=== PATIENT | female | born 1965 | race Two or more races ===

== ENCOUNTER 2016-03-09 21:36 | Emergency (ER) ==
[2016-03-09] MEDS ORDERED: LEVAQUIN PO STA (21:45)
[2016-03-09] MEDS ORDERED: NORCO 7.5-325 PO STA (21:45)
[2016-03-09] MEDS ORDERED: FLOXIN 0.3% OTIC SOL OT STA (21:45)
--- NOTE | 2016-03-09 21:48 | ED.PDOC ---
General ED Provider: Dr. YG PRAKASH-ER Chief Complaint: Earache Stated Complaint: my ear hurts Time Seen by Physician: 21:46 Mode of Arrival: Walk-In Information Source: Patient, Family Nursing and Triage Documentation Reviewed and Agree: Yes EENT Complaint Exam - Ear Complaint/Exam Onset/Duration: 2 days Symptoms Are: Still present Timing: Constant Initial Severity: Mild Current Severity: Moderate Character: Reports: Room spinning, Dull pain, Aching pain Aggravating: Reports: Tugging on ear Alleviating: Reports: None Associated Signs and Symptoms: Reports: Ear swelling, URI symptoms, Pain to external ear. Denies: Ear trauma, Discharge, Fever, Hearing loss, Bleeding, Sore throat, Headache, Foreign body sensation, Rash, Pain to external face Ear Surgical History: None Vesicles to External Pinna: No Vesicles to Tragus: No External Canal: Erythema, Tenderness, Swelling Tympanic Membrane: Erythema, Dullness Differential Diagnoses: Otitis Externa, Otitis Media Review of Systems - Review Of Systems Constitutional: Reports: No symptoms Eyes: Reports: No symptoms Ears, Nose, Mouth, Throat: Reports: Ear pain Respiratory: Reports: No symptoms Cardiac: Reports: No symptoms GI: Reports: No symptoms : Reports: No symptoms Musculoskeletal: Reports: No symptoms Skin: Reports: No symptoms Neurological: Reports: No symptoms Endocrine: Reports: No symptoms Hematologic/Lymphatic: Reports: No symptoms All Other Systems: Reviewed and Negative Past Medical History - Past Medical History Previously Healthy: Yes Endocrine: Reports: Unknown Cardiovascular: Reports: Unknown Respiratory: Reports: Unknown Hematological: Reports: Unknown Gastrointestinal: Reports: Unknown Genitourinary: Reports: Unknown Neuro/Psych: Reports: Unknown Musculoskeletal: Reports: Unknown Cancer: Reports: Unknown - Surgical History General Surgical History: Reports: Unknown - Family History Family History: Reports: Unknown - Social History Smoking Status: Unknown if ever smoked Alcohol Screening: None Lives: With family Physical Exam - Physical Exam Appearance: Well-appearing, No pain distress, Well-nourished Pain Distress: Mild Eyes: ABIDA, EOMI, Conjunctiva clear ENT: Ears normal, Nose normal, Erythema, Exudate (right tm and ext canal) Respiratory: Airway patent Cardiovascular: RRR, Pulses normal, No rub, No murmur GI/: Soft Musculoskeletal: Normal strength, ROM intact, No edema, No calf tenderness Skin: Warm, Dry, Normal color Neurological: Sensation intact Psychiatric: Affect appropriate, Mood appropriate Critical Care Note - Critical Care Note Total Time (mins): 0 Course - Course Orders, Labs, Meds: Orders Category Date Time Status Hydrocodone Bit/Acetaminophen [[place] 7.5-325] MEDS 03/09/16 21:45 Stat 1 tab PO ONCE STA Levofloxacin [Levaquin] MEDS 03/09/16 21:45 Stat 500 mg PO ONCE STA Ofloxacin 0.3% Otic [place] [Floxin 0.3% Otic Chantelle] MEDS 03/09/16 21:45 Stat 10 drop OT ONCE STA Departure - Departure Time of Disposition: 21:48 Disposition: HOME SELF-CARE Discharge Problem: Otitis media Qualifiers: Otitis media type: unspecified Laterality: right Chronicity: unspecified Qualifier Code: (H66.91) Otitis media, unspecified, right ear Otitis externa Qualifiers: Otitis externa type: unspecified type Laterality: right Chronicity: acute Qualifier Code: (H60.501) Unspecified acute noninfective otitis externa, right ear Instructions: Otitis Media (ED) Condition: Good Pt referred to PMD for follow-up: Yes Additional Instructions: levaquin 500mg q daily #7--floxin drops 10 drops into the ear bid x 7days--- norco 5mg q 4hrs prn paiun #10--f/u with pcp Allergies/Adverse Reactions: Allergies Penicillins Allergy (Severe, Unverified 10/06/15 14:00) Rash Pt to notify drugstore. Home Medications: Ambulatory Orders Atenolol 100 mg PO d 10/06/15 Disposition Discussed With: Patient, Family
[2016-03-09 21:49] VITALS: BP 147/82; TEMP 98; BMI 42.2
[2016-03-09] MEDS ORDERED: CORTISPORIN OTIC SUSP OT ONE ×2 (21:59→22:02)
== END 2016-03-09 22:20 | disposition home or self-care (01) ==
LOC: ED 21:36
DX: H66.91 Otitis media, unspecified, right ear (principal); H60.501 Unspecified acute noninfective otitis externa, right ear
CPT/HCPCS: 99282

== ENCOUNTER 2016-03-25 23:29 | Emergency (ER) ==
[2016-03-25 23:38] VITALS: BP 130/84; TEMP 97.9; BMI 42.0
[2016-03-26] MEDS ORDERED: ROCEPHIN IM STA (00:15)
[2016-03-26] MEDS ORDERED: LIDOCAINE 1 % AMP 5 ML (SUTURES) IM STA (00:15)
--- NOTE | 2016-03-26 00:18 | ED.PDOC ---
General ED Provider: Dr. VIRGINIE LINDA Chief Complaint: Earache Stated Complaint: Been hurting in the right ear, was here 10 days ago, the pain got better with antibiotics and it started from 2 days. Time Seen by Physician: 00:18 Mode of Arrival: Walk-In Information Source: Patient, Family Nursing and Triage Documentation Reviewed and Agree: Yes EENT Complaint Exam - Ear Complaint/Exam Symptoms Are: Still present Timing: Constant Initial Severity: Moderate Current Severity: Moderate Aggravating: Reports: None Alleviating: Reports: None Associated Signs and Symptoms: Reports: Discharge, URI symptoms. Denies: Ear trauma, Ear swelling, Fever, Hearing loss, Bleeding, Sore throat, Headache, Foreign body sensation, Rash, Pain to external ear, Pain to external face Related History: Reports: Similar Episode Ear Surgical History: None Vesicles to External Pinna: No TMJ Tenderness: None Mastoid Tenderness: None Tragal Tenderness: None External Canal: Normal Material in Canal: Present: Discharge Differential Diagnoses: Otitis Media, Perforated TM Review of Systems - Review Of Systems Constitutional: Reports: No symptoms Eyes: Reports: No symptoms Ears, Nose, Mouth, Throat: Reports: Ear pain Respiratory: Reports: No symptoms Cardiac: Reports: No symptoms GI: Reports: No symptoms : Reports: No symptoms Musculoskeletal: Reports: No symptoms Skin: Reports: No symptoms Neurological: Reports: No symptoms Endocrine: Reports: No symptoms Hematologic/Lymphatic: Reports: No symptoms All Other Systems: Reviewed and Negative Past Medical History - Past Medical History Previously Healthy: Yes Endocrine: Reports: Unknown Cardiovascular: Reports: Unknown Respiratory: Reports: Unknown Hematological: Reports: Unknown Gastrointestinal: Reports: Unknown Genitourinary: Reports: Unknown Neuro/Psych: Reports: Unknown Musculoskeletal: Reports: Unknown Cancer: Reports: Unknown Last Menstrual Period: 04/01 - Surgical History General Surgical History: Reports: Unknown - Family History Family History: Reports: Unknown - Social History Smoking Status: Unknown if ever smoked Hx Substance Use: No Alcohol Screening: None - Immunizations Tetanus Shot up to Date: Yes Physical Exam - Physical Exam Appearance: Ill-appearing, Obese Eyes: EOMI ENT: TMs Occluded Respiratory: Airway patent, Breath sounds clear, Breath sounds equal, Respirations nonlabored Cardiovascular: RRR, Pulses normal, No rub, No murmur GI/: Soft, Nontender, No masses, Bowel sounds normal, No Organomegaly Musculoskeletal: Normal strength, ROM intact, No edema, No calf tenderness Skin: Warm, Dry, Normal color Neurological: Sensation intact, Motor intact, Reflexes intact, Cranial nerves intact, Alert, Oriented Psychiatric: Affect appropriate, Mood appropriate Critical Care Note - Critical Care Note Total Time (mins): 0 Course - Course Orders, Labs, Meds: Orders Category Date Time Status Ceftriaxone Sodium [Rocephin] MEDS 03/26/16 00:15 Stat 1 gm IM ONCE STA Lidocaine HCl/Pf [Lidocaine 1 % Amp 5 ml (Sutures)] MEDS 03/26/16 00:15 Stat 2.1 ml IM ONCE STA Vital Signs: Temp Pulse Resp BP Pulse Ox 03/25/16 23:31 97.9 F 79 20 130/84 98 Departure - Departure Time of Disposition: 00:26 Disposition: HOME SELF-CARE Discharge Problem: Otitis media Qualifiers: Otitis media type: serous Laterality: right Chronicity: acute Recurrence: recurrent Qualifier Code: (H65.04) Acute serous otitis media, recurrent, right ear Instructions: Otitis Media (ED) Condition: Stable Pt referred to PMD for follow-up: Yes Additional Instructions: [facility] suzanne, used to communicate with patient. she is not allergic to PCN, patient is in the room with her, discussed that infection can spread to brain, needs f./u with ENT Prescriptions: Amoxicillin/Potassium Clav [Augmentin 500-125 mg Tab] 1 tab PO Q8HR #30 tablet Allergies/Adverse Reactions: Allergies Penicillins Allergy (Severe, Verified 03/09/16 21:49) Rash Pt to notify drugstore. Home Medications: Ambulatory Orders Atenolol 100 mg PO d 10/06/15 Hydrocodone Bit/Acetaminophen [[place] 5-325] 1 mg PO PRN PRN 03/25/16 Levofloxacin [Levaquin] 500 mg PO DAILY 03/25/16 Neomycin/Polymyxin B Sulf/Hc [Lpbphyrx-Efmuzciex-Sj Ear Susp] 1 ml EACH EAR BID 03/25/16 Amoxicillin/Potassium Clav [Augmentin 500-125 mg Tab] 1 tab PO Q8HR #30 tablet 03/26/16 Disposition Discussed With: Patient, Family
== END 2016-03-26 01:32 | disposition home or self-care (01) ==
LOC: ED 23:29
DX: H65.04 Acute serous otitis media, recurrent, right ear (principal)
CPT/HCPCS: 96372; 99282; 99283

== ENCOUNTER 2016-06-14 17:23 | Outpatient (CLI) ==
[2016-06-14 17:47] LABS: ALBUMIN 3.7 g/dL (3.4-5.0); ALBUMIN/GLOBULIN RATIO 0.88; ANION GAP 12.6; BILIRUBIN,TOTAL 0.26 mg/dL (0.00-1.20); BUN/CREATININE RATIO 17.14; CALCIUM 9.5 mg/dL (8.2-10.2); CREATININE 0.7 mg/dL (0.60-1.30); POTASSIUM 3.6 mmol/L (3.5-5.10); TOTAL PROTEIN 7.9 g/dL (6.4-8.2)
[2016-06-14 19:07] LABS: BASOPHILS % (AUTO) 0.4 % (0.0-3.0); EOSINOPHILS # (AUTO) 0.2 K/ul (0.0-0.7); EOSINOPHILS % (AUTO) 1.8 % (0.0-7.0); HEMATOCRIT 39.2 % (37.0-47.0); HEMOGLOBIN 13.2 g/dl (12.0-16.0); IMMATURE GRANULOCYTE % (AUTO) 0.3 % (0.0-5.0); LYMPHOCYTES # (AUTO) 3.6 K/uL (0.60-3.4); LYMPHOCYTES % (AUTO) 38.4 (10.0-50.0); MEAN CORPUSCULAR HEMOGLOBIN 28.6 pg (27.0-31.0); MEAN CORPUSCULAR HGB CONC 33.7 (31.8-35.4); MEAN CORPUSCULAR VOLUME 84.8 fl (81.0-99.0); MONOCYTES # (AUTO) 0.7 K/uL (0.4-2.0); MONOCYTES % (AUTO) 7.5 (0-10); NEUTROPHILS # (AUTO) 4.8 K/ul (2.0-6.9); NEUTROPHILS % (AUTO) 51.6; PLATELET COUNT 265 10^3/uL (140-440); RED BLOOD COUNT 4.62 10^6/ul (4.20-5.40)
== END 2016-06-14 17:24 | disposition home or self-care (01) ==
LOC: LAB 17:23
PROVIDERS: ATTEND Nurse Practitioner Family
DX: R19.7 Diarrhea, unspecified (principal)
CPT/HCPCS: 36415; 80053; 82150; 83690; 85025

== ENCOUNTER 2016-06-17 07:11 | Outpatient (CLI) ==
--- NOTE | 2016-06-17 08:22 | US ---
EXAM: ULTRASOUND ABDOMEN LIMITED HISTORY: Generalized abdominal pain FINDINGS: Ultrasound abdomen, limited. Liver size was normal at about 13 cm. Liver parenchyma demo nstrated increased sound attenuation which can be consistent with steatosis. No gallbladder stones or sludge identified. The gallbladder wall thickness was normal at 0.21 cm. Common bile duct diame ter was minimally dilated at 0.67 cm. Visualized pancreas was grossly unremarkable. No ascites molly ntified. IMPRESSION: 1. Probable fatty liver. 2. No gallstones or gallbladder sludge identified. The gallbladder wall thickness was normal altho ugh the common bile duct was minimally dilated.
== END 2016-06-17 07:12 | disposition home or self-care (01) ==
LOC: RAD 07:11
PROVIDERS: ATTEND Nurse Practitioner Family
DX: R10.84 Generalized abdominal pain (principal); R94.5 Abnormal results of liver function studies

== ENCOUNTER 2016-06-22 08:36 | Outpatient (CLI) ==
--- NOTE | 2016-06-22 12:28 | NM ---
EXAM: Hepatobiliary imaging HISTORY: Abdominal pain COMPARISON: Limited abdominal ultrasound on 06/17/2016 showed fatty liver. No gallstones. TECHNIQUE: Patient was injected 5.1 mCi of technetium 99m Choletec intravenously. Multiple anterior scintigraphic images of the right upper quadrant region of the abdomen were obtained up to 1 hour i nterval. Patient was infused 2 mcg of cholecystokinin intravenously. Gallbladder ejection fraction was calculated. FINDINGS: There is normal visualization of liver, gallbladder, bile duct and small bowel loops. Gal lbladder ejection fraction is 12% which is abnormal. IMPRESSION: Findings are compatible with chronic acalculous cholecystitis or biliary dyskinesia.
== END 2016-06-22 08:37 | disposition home or self-care (01) ==
LOC: RAD 08:36
PROVIDERS: ATTEND Nurse Practitioner Family
DX: R10.84 Generalized abdominal pain (principal); R94.5 Abnormal results of liver function studies

== ENCOUNTER 2016-07-13 04:00 | Emergency (ER) ==
[2016-07-13 04:01] VITALS: BMI 42.0
[2016-07-13 04:12] VITALS: BP 147/84; TEMP 98
[2016-07-13 04:35] LABS: BASOPHILS # (AUTO) 0.1 K/uL (0-0.2); BASOPHILS % (AUTO) 0.5 % (0.0-3.0); EOSINOPHILS # (AUTO) 0.3 K/ul (0.0-0.7); EOSINOPHILS % (AUTO) 2.4 % (0.0-7.0); HEMATOCRIT 36.4 % (37.0-47.0); HEMOGLOBIN 12.6 g/dl (12.0-16.0); IMMATURE GRANULOCYTE % (AUTO) 0.2 % (0.0-5.0); LYMPHOCYTES # (AUTO) 4.7 K/uL (0.60-3.4); LYMPHOCYTES % (AUTO) 41.9 (10.0-50.0); MEAN CORPUSCULAR HEMOGLOBIN 28.8 pg (27.0-31.0); MEAN CORPUSCULAR HGB CONC 34.6 (31.8-35.4); MEAN CORPUSCULAR VOLUME 83.3 fl (81.0-99.0); MONOCYTES # (AUTO) 0.8 K/uL (0.4-2.0); MONOCYTES % (AUTO) 7.2 (0-10); NEUTROPHILS # (AUTO) 5.4 K/ul (2.0-6.9); NEUTROPHILS % (AUTO) 47.8; PLATELET COUNT 263 10^3/uL (140-440); RED BLOOD COUNT 4.37 10^6/ul (4.20-5.40); WHITE BLOOD COUNT 11.18 K/ul (4.6-10.2)
[2016-07-13 04:36] LABS: BILIRUBIN,URINE Negative (NEGATIVE); KETONES,URINE Negative (NEGATIVE); LEUKOCYTE ESTERASE ,URINE Trace (NEGATIVE); NITRITE,URINE Negative (NEGATIVE); PROTEIN,URINE Negative (NEGATIVE); URINE, BLOOD Negative (NEGATIVE)
[2016-07-13 04:37] LABS: URINE PREGNANCY INTERNAL QC INTERNAL QC VALID
[2016-07-13 04:41] LABS: ADD URINE MICROSCOPIC YES
[2016-07-13 04:42] LABS: BACTERIA,URINE TRACE (NOT PRESENT)
[2016-07-13 04:54] LABS: ALBUMIN 3.6 g/dL (3.4-5.0); ALBUMIN/GLOBULIN RATIO 0.82; ANION GAP 10.5; BILIRUBIN,TOTAL 0.38 mg/dL (0.00-1.20); BUN/CREATININE RATIO 16.9; CALCIUM 9.1 mg/dL (8.2-10.2); CREATININE 0.71 mg/dL (0.60-1.30); POTASSIUM 3.5 mmol/L (3.5-5.10)
[2016-07-13] MEDS ORDERED: DEMEROL 50 MG/ML SYRINGE IM STA (05:04)
[2016-07-13] MEDS ORDERED: PHENERGAN 25 MG/ML VIAL IM STA (05:04)
--- NOTE | 2016-07-13 05:44 | CT ---
EXAM: CT of the abdomen and pelvis without contrast. HISTORY: Right upper quadrant pain. PROCEDURE: Contiguous axial CT images of the abdomen and pelvis without contrast with coronal and s agittal reformats. FINDINGS: The liver, gallbladder, pancreas, spleen, adrenal glands and kidneys are normal in appeara nce. The abdominal aorta is normal in appearance. The visualized loops of bowel and appendix are no rmal in appearance. No free fluid or free air in the abdomen or pelvis. The bladder is adequately f illed with no abnormality identified. The uterus is unremarkable. There are degenerative changes in the spine. The soft tissues are unremarkable. Impression: Negative CT of the abdomen and pelvis as described.
--- NOTE | 2016-07-13 05:50 | ED.PDOC ---
General ED Provider: Dr. YG PRAKASH-ER Chief Complaint: Abdominal Pain Stated Complaint: she is scheculked to have her gb out soon--i am having pain and nausea Time Seen by Physician: 04:30 Mode of Arrival: Walk-In Information Source: Patient, Family Exam Limitations: No limitations [facility] and Triage Documentation Reviewed and Agree: Yes GI Complaint Exam - Abdominal Pain Complaint/Exam Onset: Gradual Duration: several hours Symptoms Are: Still present Timing: Intermittent Initial Severity: Mild Current Severity: Moderate Location of Pain: RUQ Radiates To: Reports: Back Character: Reports: Dull Aggravating: Reports: None Alleviating: Reports: None Associated Signs and Symptoms: Reports: Nausea, Vomiting. Denies: Diaphoresis, Fever, Cough, Chest pain, Dizziness, Back pain, Constipation, Blood in stool, Dysuria, Urinary frequency, Decreased urine output, Decreased appetite, Vaginal bleeding, Vaginal discharge, Diarrhea, Sore throat, Decreased activity Related History: Reports: Similar episode AAA Risk Factors: Reports: None Cardiac Risk Factors: Reports: None Ectopic Risk Factors: Reports: None Ovarian Torsion Risk Factors: Reports: Reproductive age Surgical Obstruction Risk Factors: Reports: None Related Surgical History: Reports: None Patient Rh Status: Unknown Abdominal Findings: Present: None Differential Diagnoses: Constipation, GB Review of Systems - Review Of Systems Constitutional: Reports: No symptoms Eyes: Reports: No symptoms Ears, Nose, Mouth, Throat: Reports: No symptoms Respiratory: Reports: No symptoms Cardiac: Reports: No symptoms GI: Reports: Abdominal pain, Nausea : Reports: No symptoms Musculoskeletal: Reports: No symptoms Skin: Reports: No symptoms Neurological: Reports: No symptoms Endocrine: Reports: No symptoms Hematologic/Lymphatic: Reports: No symptoms All Other Systems: Reviewed and Negative Past Medical History - Past Medical History Previously Healthy: Yes Endocrine: Reports: Unknown Cardiovascular: Reports: Unknown Respiratory: Reports: Unknown Hematological: Reports: Unknown Gastrointestinal: Reports: Unknown Genitourinary: Reports: Unknown Neuro/Psych: Reports: Unknown Musculoskeletal: Reports: Unknown Cancer: Reports: Unknown Last Menstrual Period: 517 - Surgical History General Surgical History: Reports: Unknown - Family History Family History: Reports: Unknown - Social History Smoking Status: Never smoker Hx Substance Use: No Alcohol Screening: None Lives: With family - Immunizations Tetanus Shot up to Date: Yes Physical Exam - Physical Exam Appearance: Well-appearing Pain Distress: Moderate Eyes: ABIDA, EOMI, Conjunctiva clear ENT: Ears normal, Nose normal, Oropharynx normal Neck: Supple Respiratory: Airway patent, Breath sounds clear, Breath sounds equal, Respirations nonlabored Cardiovascular: RRR, Pulses normal, No rub, No murmur GI/: Soft, No masses, Bowel sounds normal, No Organomegaly, Tender Musculoskeletal: Normal strength, ROM intact, No edema, No calf tenderness Skin: Warm, Dry, Normal color Neurological: Sensation intact, Motor intact, Reflexes intact, Cranial nerves intact, Alert, Oriented Psychiatric: Affect appropriate, Mood appropriate Interpretation - Radiology Interpretation Radiology Interpretation By: Radiologist Radiology Results: Negative Exam Interpreted: CT Scan Re-Evaluation - Re-Evaluation Time of Re-Evaluation: 05:50 Status: Improved Vital Signs Stable: Yes Pain Level: 2 Appearance: NAD Lungs: Clear Skin: Warm and Dry Neuro: Alert and Oriented X3 CV: RRR Critical Care Note - Critical Care Note Total Time (mins): 0 Course - Course Hematology/Chemistry: 07/13/16 04:30 07/13/16 04:30 Orders, Labs, Meds: Lab Review 07/13/16 07/13/16 04:25 04:30 WBC 11.18 H RBC 4.37 Hgb 12.6 Hct 36.4 L MCV 83.3 MCH 28.8 MCHC 34.6 RDW Coeff of Ted 14.2 Plt Count 263 Immature Gran % (Auto) 0.2 Neut % (Auto) 47.8 Lymph % (Auto) 41.9 [place] % (Auto) 7.2 Eos % (Auto) 2.4 Baso % (Auto) 0.5 Immature Gran # (Auto) 0.0 Neut # 5.4 Lymph # 4.7 H [place] # 0.8 Eos # 0.3 Baso # 0.1 Sodium 135 L Potassium 3.5 Chloride 105 Carbon Dioxide 23 Anion Gap 10.5 BUN 12 Creatinine 0.71 Estimated GFR (MDRD) 88.00 BUN/Creatinine Ratio 16.90 Glucose 102 Calcium 9.1 Total Bilirubin 0.38 AST 43 H ALT 51 Alkaline Phosphatase 83 Total Protein 8.0 Albumin 3.6 Globulin 4.4 Albumin/Globulin Ratio 0.82 Amylase 51 Lipase 26 Urine Color Yellow Urine Clarity Clear Urine pH 6.0 Ur Specific [place] 1.010 Urine Protein Negative Urine Glucose (UA) Negative Urine Ketones Negative Urine Blood Negative Urine Nitrite Negative Urine Bilirubin Negative Urine Urobilinogen 0.2 Ur Leukocyte Esterase Trace Urine Microscopic WBC 2-5 Ur Squamous Epith Cells 5-10 Urine Bacteria Trace Urine Test Negative Orders Category Date Time Status AMYLASE Stat LAB 07/13/16 04:30 Completed CBC W/ AUTO DIFF Stat LAB 07/13/16 04:30 Completed CMP [COMPREHENSIVE METABOLIC PANEL] Stat LAB 07/13/16 04:30 Completed LIPASE Stat LAB 07/13/16 04:30 Completed URINALYSIS C & S IF INDICATED Stat LAB 07/13/16 04:25 Completed URINE Stat LAB 07/13/16 04:25 Completed Meperidine HCl/Pf [Demerol 50 mg/ml Syringe] MEDS 07/13/16 05:04 Discontinued 50 mg IM ONCE STA Promethazine HCl [Phenergan 25 mg/ml Vial] MEDS 07/13/16 05:04 Discontinued 25 mg IM ONCE STA CT ABDOMEN/PELVIS WO CONTRAST Stat RADS 07/13/16 05:04 Completed Medications Discontinued Medications Generic Name Dose Route Start Last Admin Trade Name Joelle PRN Reason Stop Dose Admin Meperidine HCl 50 mg 07/13/16 05:04 07/13/16 05:13 Demerol 50 Mg/Ml Syringe IM 07/13/16 05:05 50 mg ONCE STA Administration Promethazine HCl 25 mg 07/13/16 05:04 07/13/16 05:12 Phenergan 25 Mg/Ml Vial IM 07/13/16 05:05 25 mg ONCE STA Administration Vital Signs: Temp Pulse Resp BP Pulse Ox 07/13/16 04:01 98 F 71 18 147/84 H 99 Departure - Departure Time of Disposition: 05:50 Disposition: HOME SELF-CARE Discharge Problem: Abdominal pain Instructions: Biliary Colic (ED) Condition: Good Pt referred to PMD for follow-up: Yes Additional Instructions: low fat diet--f/u with dr bocanegra Allergies/Adverse Reactions: Allergies Penicillins Allergy (Severe, Verified 07/13/16 04:12) Rash Pt to notify drugstore. Disposition Discussed With: Patient, Family
== END 2016-07-13 05:58 | disposition home or self-care (01) ==
LOC: ED 04:00
DX: R10.11 Right upper quadrant pain (principal); R11.2 Nausea with vomiting, unspecified
CPT/HCPCS: 36415; 80053; 81001; 81025; 82150; 83690; 85025; 96372; 99283

== ENCOUNTER 2016-08-01 22:21 | Emergency (ER) ==
[2016-08-01 22:28] VITALS: BP 126/81; TEMP 98.7; BMI 41.7
[2016-08-01] MEDS ORDERED: ZOFRAN 4 MG/2 ML IM STA (22:41)
[2016-08-01] MEDS ORDERED: DEMEROL 25 MG/ML SYRINGE IM STA (22:41)
--- NOTE | 2016-08-01 22:44 | ED.PDOC ---
General ED Provider: Dr. VIRGINIE LINDA Chief Complaint: Abdominal Pain Stated Complaint: Been hurting in the rt side of the belly, she suppose to have Gb SURGERY ON 07-15-16, But was re scheduled to some other time,. no vomiting, no fever or chills Time Seen by Physician: 22:42 Mode of Arrival: Walk-In Information Source: Patient, Family Primary Care Provider: VIRGINIE LINDA[facility] Nursing and Triage Documentation Reviewed and Agree: Yes GI Complaint Exam - Abdominal Pain Complaint/Exam Onset: Gradual Symptoms Are: Still present Timing: Intermittent Initial Severity: Moderate Current Severity: Moderate Location of Pain: RUQ Radiates To: Reports: Back Character: Reports: Dull, Aching Aggravating: Reports: Movement, Food Alleviating: Reports: None Associated Signs and Symptoms: Denies: Diaphoresis, Fever, Cough, Chest pain, Dizziness, Back pain, Constipation, Blood in stool, Dysuria, Urinary frequency, Decreased urine output, Decreased appetite, Vaginal bleeding, Vaginal discharge , Nausea, Vomiting, Diarrhea, Sore throat, Decreased activity Related History: Reports: Similar episode AAA Risk Factors: Reports: None Cardiac Risk Factors: Reports: None Ectopic Risk Factors: Reports: None Ovarian Torsion Risk Factors: Reports: None Surgical Obstruction Risk Factors: Reports: None Related Surgical History: Reports: None Patient Rh Status: Unknown Abdominal Findings: Absent: Pulsatile mass, Abdominal distention, Unequal femoral pulses, Rebound tenderness Differential Diagnoses: Hepatitis, Pancreatitis, GB Review of Systems - Review Of Systems Constitutional: Reports: Malaise Eyes: Reports: No symptoms Ears, Nose, Mouth, Throat: Reports: No symptoms Respiratory: Reports: No symptoms Cardiac: Reports: No symptoms GI: Reports: Abdominal pain : Reports: No symptoms Musculoskeletal: Reports: No symptoms Skin: Reports: No symptoms Neurological: Reports: No symptoms Endocrine: Reports: No symptoms Hematologic/Lymphatic: Reports: No symptoms All Other Systems: Reviewed and Negative Past Medical History - Past Medical History Previously Healthy: Yes Endocrine: Reports: Unknown Cardiovascular: Reports: Unknown Respiratory: Reports: Unknown Hematological: Reports: Unknown Gastrointestinal: Reports: Unknown Genitourinary: Reports: Unknown Neuro/Psych: Reports: Unknown Musculoskeletal: Reports: Unknown Cancer: Reports: Unknown Last Menstrual Period: 07/26/16 - Surgical History General Surgical History: Reports: Unknown - Family History Family History: Reports: Unknown - Social History Smoking Status: Never smoker Hx Substance Use: No Alcohol Screening: None - Immunizations Tetanus Shot up to Date: Yes Physical Exam - Physical Exam Appearance: Ill-appearing, Obese Eyes: ABIDA, EOMI, Conjunctiva clear ENT: Ears normal, Nose normal, Oropharynx normal Respiratory: Airway patent, Breath sounds clear, Breath sounds equal, Respirations nonlabored Cardiovascular: RRR, Pulses normal, No rub, No murmur GI/: Tender, Bowel sounds hypoactive Musculoskeletal: Normal strength, ROM intact, No edema, No calf tenderness Skin: Warm, Dry, Normal color Neurological: Sensation intact, Motor intact, Reflexes intact, Cranial nerves intact, Alert, Oriented Psychiatric: Affect appropriate, Mood appropriate Interpretation - Radiology Interpretation Radiology Interpretation By: Radiologist Radiology Results: Negative Exam Interpreted: CT Scan Critical Care Note - Critical Care Note Total Time (mins): 0 Course - Course Hematology/Chemistry: 08/01/16 22:45 08/01/16 22:45 Orders, Labs, Meds: Lab Review 08/01/16 22:45 WBC 10.57 H RBC 4.38 Hgb 12.5 Hct 36.8 L MCV 84.0 MCH 28.5 MCHC 34.0 RDW Coeff of Ted 14.6 Plt Count 256 Immature Gran % (Auto) 0.3 Neut % (Auto) 52.6 Lymph % (Auto) 37.4 [place] % (Auto) 6.9 Eos % (Auto) 2.3 Baso % (Auto) 0.5 Immature Gran # (Auto) 0.0 Neut # 5.6 Lymph # 4.0 H [place] # 0.7 Eos # 0.2 Baso # 0.1 Sodium 140 Potassium 4.0 Chloride 107 Carbon Dioxide 24 Anion Gap 13.0 BUN 14 Creatinine 0.75 Estimated GFR (MDRD) 82.00 BUN/Creatinine Ratio 18.66 Glucose 99 Calcium 9.6 Total Bilirubin 0.29 AST 31 ALT 38 Alkaline Phosphatase 85 Total Protein 8.2 Albumin 3.9 Globulin 4.3 Albumin/Globulin Ratio 0.91 Amylase 52 Lipase 31 Serum , Qual Negative Orders Category Date Time Status AMYLASE Stat LAB 08/01/16 22:45 Completed CBC W/ AUTO DIFF Stat LAB 08/01/16 22:45 Completed COMPREHENSIVE METABOLIC PANEL Stat LAB 08/01/16 22:45 Completed LIPASE Stat LAB 08/01/16 22:45 Completed SERUM Stat LAB 08/01/16 22:45 Completed Meperidine HCl/Pf [Demerol 25 mg/ml Syringe] MEDS 08/01/16 22:41 Discontinued 25 mg IM ONCE STA Ondansetron HCl/Pf [Zofran 4 mg/2 ml] MEDS 08/01/16 22:41 Discontinued 4 mg IM ONCE STA CT ABDOMEN/PELVIS WO CONTRAST Stat RADS 08/01/16 22:41 Completed Medications Discontinued Medications Generic Name Dose Route Start Last Admin Trade Name Joelle PRN Reason Stop Dose Admin Meperidine HCl 25 mg 08/01/16 22:41 08/01/16 22:50 Demerol 25 Mg/Ml Syringe IM 08/01/16 22:42 25 mg ONCE STA Administration Ondansetron HCl 4 mg 08/01/16 22:41 08/01/16 22:52 Zofran 4 Mg/2 Ml IM 08/01/16 22:42 4 mg ONCE STA Administration Vital Signs: Temp Pulse Resp BP Pulse Ox 08/01/16 22:22 98.7 F 65 20 126/81 98 Departure - Departure Time of Disposition: 00:00 Disposition: HOME SELF-CARE Discharge Problem: Cholelithiasis Qualifiers: Cholelithiasis location: gallbladder Cholecystitis presence: without cholecystitis Biliary obstruction: without biliary obstruction Qualifier Code: ( K80.20) Calculus of gallbladder without cholecystitis without obstruction Instructions: Gallstones (ED), Biliary Colic (ED) Condition: Stable Pt referred to PMD for follow-up: Yes Additional Instructions: soft diet needs f/u with surgeon Dr Castañeda. Allergies/Adverse Reactions: Allergies No Known Allergies Allergy (Verified 08/01/16 22:28) Home Medications: Ambulatory Orders Amitrip HCl/Chlordiazepoxide [Chlordiazepo-Amitriptyl 5-12.5] 5 - 12.5 mg PO QID PRN 08/01/16 Disposition Discussed With: Patient, Family
[2016-08-01 22:50] LABS: BASOPHILS # (AUTO) 0.1 K/uL (0-0.2); BASOPHILS % (AUTO) 0.5 % (0.0-3.0); EOSINOPHILS # (AUTO) 0.2 K/ul (0.0-0.7); EOSINOPHILS % (AUTO) 2.3 % (0.0-7.0); HEMATOCRIT 36.8 % (37.0-47.0); HEMOGLOBIN 12.5 g/dl (12.0-16.0); IMMATURE GRANULOCYTE % (AUTO) 0.3 % (0.0-5.0); LYMPHOCYTES % (AUTO) 37.4 (10.0-50.0); MEAN CORPUSCULAR HEMOGLOBIN 28.5 pg (27.0-31.0); MONOCYTES # (AUTO) 0.7 K/uL (0.4-2.0); MONOCYTES % (AUTO) 6.9 (0-10); NEUTROPHILS # (AUTO) 5.6 K/ul (2.0-6.9); NEUTROPHILS % (AUTO) 52.6; PLATELET COUNT 256 10^3/uL (140-440); RED BLOOD COUNT 4.38 10^6/ul (4.20-5.40); WHITE BLOOD COUNT 10.57 K/ul (4.6-10.2)
[2016-08-01 23:06] LABS: SERUM PREGNANCY INTERNAL QC INTERNAL QC VALID
[2016-08-01 23:10] LABS: ALBUMIN 3.9 g/dL (3.4-5.0); ALBUMIN/GLOBULIN RATIO 0.91; BILIRUBIN,TOTAL 0.29 mg/dL (0.00-1.20); BUN/CREATININE RATIO 18.66; CALCIUM 9.6 mg/dL (8.2-10.2); CREATININE 0.75 mg/dL (0.60-1.30); TOTAL PROTEIN 8.2 g/dL (6.4-8.2)
--- NOTE | 2016-08-01 23:43 | CT ---
EXAM: CT of the abdomen and pelvis without contrast. HISTORY: Right upper quadrant pain. PROCEDURE: Contiguous axial CT images of the abdomen and pelvis without contrast with coronal and s agittal reformats. FINDINGS: The liver, gallbladder, pancreas, spleen, adrenal glands and kidneys are normal in appeara nce. The abdominal aorta is normal in appearance. The visualized loops of bowel and appendix are no rmal in appearance. No free fluid or free air in the abdomen or pelvis. The bladder is adequately f illed with no abnormality identified. The uterus is unremarkable. The bones and soft tissues are unr emarkable. Impression: Negative CT of the abdomen and pelvis.
== END 2016-08-02 00:30 | disposition home or self-care (01) ==
LOC: ED 22:21
DX: K80.20 Calculus of gallbladder without cholecystitis without obstruction (principal)
CPT/HCPCS: 36415; 80053; 82150; 83690; 84703; 85025; 96372; 99283

== ENCOUNTER 2016-10-14 10:26 | Outpatient (CLI) ==
[2016-10-14 10:44] LABS: BASOPHILS # (AUTO) 0.1 K/uL (0-0.2); BASOPHILS % (AUTO) 0.6 % (0.0-3.0); EOSINOPHILS # (AUTO) 0.2 K/ul (0.0-0.7); EOSINOPHILS % (AUTO) 2.1 % (0.0-7.0); HEMATOCRIT 38.9 % (37.0-47.0); HEMOGLOBIN 13.2 g/dl (12.0-16.0); IMMATURE GRANULOCYTE % (AUTO) 0.2 % (0.0-5.0); LYMPHOCYTES # (AUTO) 3.5 K/uL (0.60-3.4); LYMPHOCYTES % (AUTO) 33.5 (10.0-50.0); MEAN CORPUSCULAR HEMOGLOBIN 27.4 pg (27.0-31.0); MEAN CORPUSCULAR HGB CONC 33.9 (31.8-35.4); MEAN CORPUSCULAR VOLUME 80.9 fl (81.0-99.0); MONOCYTES # (AUTO) 0.6 K/uL (0.4-2.0); MONOCYTES % (AUTO) 5.5 (0-10); NEUTROPHILS % (AUTO) 58.1; PLATELET COUNT 260 10^3/uL (140-440); RED BLOOD COUNT 4.81 10^6/ul (4.20-5.40); WHITE BLOOD COUNT 10.31 K/ul (4.6-10.2)
[2016-10-14 11:01] LABS: ALBUMIN 3.8 g/dL (3.4-5.0); ALBUMIN/GLOBULIN RATIO 0.86; ANION GAP 14.3; BILIRUBIN,TOTAL 0.36 mg/dL (0.00-1.20); BUN/CREATININE RATIO 10.14; CALCIUM 9.6 mg/dL (8.2-10.2); CREATININE 0.69 mg/dL (0.60-1.30); POTASSIUM 4.3 mmol/L (3.5-5.10); TOTAL PROTEIN 8.2 g/dL (6.4-8.2)
--- NOTE | 2016-10-14 12:17 | CT ---
EXAM: CT Abdomen with contrast. CT Pelvis with contrast. HISTORY: Generalized abdominal pain. COMPARISON: 08/01/2016. TECHNIQUE: Multiple axial images of the abdomen and pelvis were obtained following intravenous admi nistration of 75 mL of Omnipaque 350, low osmolar. Images were reformatted in the coronal plane. FINDINGS: The lung bases are clear. Degenerative changes present in the spine. Gallbladder is absent. The liver, pancreas, spleen, adrenal glands, and kidneys are unremarkable. The bowel is normal in course and caliber without evidence for obstruction or inflammatory process. The appendix is normal. Uterus demonstrates normal contour. Urinary bladder is unremarkable. No free fluid, free air or lymphadenopathy identified midline anterior subcutaneous fat. Soft tissue d ensity above the umbilicus, all less likely relates to interval cholecystectomy. IMPRESSION: No acute abnormality in the abdomen or pelvis.
== END 2016-10-14 10:27 | disposition home or self-care (01) ==
LOC: RAD 10:26
PROVIDERS: ATTEND Nurse Practitioner Family
DX: R10.84 Generalized abdominal pain (principal)
CPT/HCPCS: 36415; 80053; 82150; 83690; 85025

== ENCOUNTER 2016-10-27 13:48 | Outpatient (CLI) ==
[2016-10-27 14:03] LABS: BASOPHILS # (AUTO) 0.1 K/uL (0-0.2); BASOPHILS % (AUTO) 0.6 % (0.0-3.0); EOSINOPHILS # (AUTO) 0.2 K/ul (0.0-0.7); EOSINOPHILS % (AUTO) 1.8 % (0.0-7.0); HEMATOCRIT 38.2 % (37.0-47.0); HEMOGLOBIN 13.1 g/dl (12.0-16.0); IMMATURE GRANULOCYTE % (AUTO) 0.3 % (0.0-5.0); LYMPHOCYTES # (AUTO) 3.5 K/uL (0.60-3.4); MEAN CORPUSCULAR HEMOGLOBIN 27.8 pg (27.0-31.0); MEAN CORPUSCULAR HGB CONC 34.3 (31.8-35.4); MEAN CORPUSCULAR VOLUME 80.9 fl (81.0-99.0); MONOCYTES # (AUTO) 0.6 K/uL (0.4-2.0); MONOCYTES % (AUTO) 5.7 (0-10); NEUTROPHILS # (AUTO) 6.4 K/ul (2.0-6.9); NEUTROPHILS % (AUTO) 59.6; PLATELET COUNT 254 10^3/uL (140-440); RED BLOOD COUNT 4.72 10^6/ul (4.20-5.40)
[2016-10-27 15:16] LABS: ALBUMIN 3.5 g/dL (3.4-5.0); ALBUMIN/GLOBULIN RATIO 0.76; BILIRUBIN,TOTAL 0.27 mg/dL (0.00-1.20); BUN/CREATININE RATIO 13.51; CALCIUM 9.8 mg/dL (8.2-10.2); CHOL/HDL RATIO 3.9 (4.5-5.5); CREATININE 0.74 mg/dL (0.60-1.30); TOTAL PROTEIN 8.1 g/dL (6.4-8.2)
[2016-10-28 07:18] LABS: FOLLICLE STIMULATING HORMONE 2.8 mIU/mL (.); LUTEINIZING HORMONE 8.3 mIU/mL (.)
== END 2016-10-27 13:49 | disposition home or self-care (01) ==
LOC: CAR 13:48
PROVIDERS: ATTEND Nurse Practitioner Family
DX: I10 Essential (primary) hypertension (principal); N91.2 Amenorrhea, unspecified
CPT/HCPCS: 36415; 80053; 80061; 82672; 83001; 83002; 84439; 84443; 85025; 93005; 93010

== ENCOUNTER 2017-02-01 12:37 | Outpatient (CLI) ==
[2017-02-01 13:14] LABS: BASOPHILS # (AUTO) 0.1 K/uL (0-0.2); BASOPHILS % (AUTO) 0.5 % (0.0-3.0); EOSINOPHILS # (AUTO) 0.2 K/ul (0.0-0.7); EOSINOPHILS % (AUTO) 1.7 % (0.0-7.0); HEMATOCRIT 40.1 % (37.0-47.0); HEMOGLOBIN 13.2 g/dl (12.0-16.0); IMMATURE GRANULOCYTE % (AUTO) 0.3 % (0.0-5.0); LYMPHOCYTES # (AUTO) 3.4 K/uL (0.60-3.4); LYMPHOCYTES % (AUTO) 33.8 (10.0-50.0); MEAN CORPUSCULAR HEMOGLOBIN 27.6 pg (27.0-31.0); MEAN CORPUSCULAR HGB CONC 32.9 (31.8-35.4); MEAN CORPUSCULAR VOLUME 83.7 fl (81.0-99.0); MONOCYTES # (AUTO) 0.7 K/uL (0.4-2.0); MONOCYTES % (AUTO) 7.4 (0-10); NEUTROPHILS # (AUTO) 5.6 K/ul (2.0-6.9); NEUTROPHILS % (AUTO) 56.3; PLATELET COUNT 243 10^3/uL (140-440); RED BLOOD COUNT 4.79 10^6/ul (4.20-5.40); WHITE BLOOD COUNT 9.92 K/ul (4.6-10.2)
[2017-02-01 14:12] LABS: ALBUMIN 3.7 g/dL (3.4-5.0); ALBUMIN/GLOBULIN RATIO 0.8; BILIRUBIN,TOTAL 0.3 mg/dL (0.00-1.20); BUN/CREATININE RATIO 16.41; CALCIUM 9.5 mg/dL (8.2-10.2); CHOL/HDL RATIO 3.7 (4.5-5.5); CREATININE 0.67 mg/dL (0.60-1.30); TOTAL PROTEIN 8.3 g/dL (6.4-8.2)
[2017-02-01 14:18] LABS: ANION GAP 13.9; POTASSIUM 3.9 mmol/L (3.5-5.10)
== END 2017-02-01 12:38 | disposition home or self-care (01) ==
LOC: LAB 12:37
PROVIDERS: ATTEND Nurse Practitioner Family
DX: E75.6 Lipid storage disorder, unspecified (principal); I10 Essential (primary) hypertension; R53.83 Other fatigue
CPT/HCPCS: 36415; 80053; 80061; 82306; 84439; 84443; 85025

== ENCOUNTER 2017-02-11 08:35 | Emergency (ER) ==
[2017-02-11 08:41] VITALS: BP 142/91; TEMP 98.4; BMI 41.0
[2017-02-11] MEDS ORDERED: LIDOCAINE HCL 1% SDV SUBCUT STA (09:05)
[2017-02-11] MEDS ORDERED: ROCEPHIN IM STA (09:05)
[2017-02-11] MEDS ORDERED: DECADRON 4 MG/ML SDV IM STA (09:05)
[2017-02-11] MEDS ORDERED: TUSSIONEX PO STA (09:06)
--- NOTE | 2017-02-11 09:12 | ED.PDOC ---
General ED Provider: Dr. EMILE MARQUIS Chief Complaint: Respiratory Complaint Stated Complaint: cough flu like symp Time Seen by Physician: 09:00 Mode of Arrival: Walk-In Information Source: Patient, Family Exam Limitations: No limitations [facility] Nursing and Triage Documentation Reviewed and Agree: Yes Reviewed sepsis parameters & appropriate labs ordered?: Yes System Inflammatory Response Syndrome: Not Applicable Sepsis Protocol: For patient's 13 years and over: Temp is 96.8 and below OR 101 and greater Pulse >90 BPM Resp >20/minute Acutely Altered Mental Status Are patient's symptoms suggestive of a new infection, such as: -Pneumonia -Skin, Soft Tissue -Endocarditis -UTI -Bone, Joint Infection -Implantable Device -Acute Abdominal Infection -Wound Infection -Meningitis -Blood Stream Catheter Infection -Unknown Respiratory Complaint Exam - Respiratory Complaint/Exam Onset/Duration: 3 days Symptoms Are: Still present Timing: Intermittent Initial Severity: Moderate Current Severity: Mild Location: Nose, Throat, Chest Character: Reports: Non-productive cough Alleviating: Reports: None Associated Signs and Symptoms: Reports: URI, Nasal congestion. Denies: Rapid breathing, Dyspnea, Fever, Chills, Chest pain, Pleuritic chest pain, Wheezing, Hemoptysis, Dizziness, Calf pain, Calf swelling, Edema, Hoarseness, Sinus discomfort, Vomiting, Sore throat, Weight loss, Decreased oral intake, Increased thirst, Increased appetite, Increased urination Related Surgical History: Reports: None Pulmonary Embolism Risk Factors: None Cardiac Risk Factors: Reports: None Pseudomonas Risk Factors: Reports: None Tuberculosis Risk Factors: Reports: None Status Asthmaticus Risk Factors: Reports: None Home Oxygen Use: No Recent Stress Test: No Recent Echo/LV Function: No Current Antibiotic Use: No Current Asthma Medication Use: No Respiratory Distress: None Inadequate Respiratory Effort: No Dysphagia Present: No Stridor Present: No JVD Present: No Accessory Muscle Use: No Retractions: Not Present Diminished Breath Sounds: No Sinus Tenderness: None Grunting Respirations: No Kussmaul Respirations: No Differential Diagnoses: Bronchitis (viral syndrome) Review of Systems - Review Of Systems Constitutional: Reports: Malaise Eyes: Reports: No symptoms Ears, Nose, Mouth, Throat: Reports: No symptoms Respiratory: Reports: Cough Cardiac: Reports: No symptoms GI: Reports: No symptoms : Reports: No symptoms Musculoskeletal: Reports: No symptoms Skin: Reports: No symptoms Neurological: Reports: No symptoms Endocrine: Reports: No symptoms Hematologic/Lymphatic: Reports: No symptoms All Other Systems: Reviewed and Negative Past Medical History - Past Medical History Previously Healthy: Yes Endocrine: Reports: Unknown Cardiovascular: Reports: Unknown Respiratory: Reports: Unknown Hematological: Reports: Unknown Gastrointestinal: Reports: Unknown Genitourinary: Reports: Unknown Neuro/Psych: Reports: Unknown Musculoskeletal: Reports: Unknown Cancer: Reports: Unknown Last Menstrual Period: now - Surgical History General Surgical History: Reports: Unknown - Family History Family History: Reports: Unknown - Social History Smoking Status: Never smoker Hx Substance Use: No Alcohol Screening: None Physical Exam - Physical Exam Appearance: Well-appearing, No pain distress, Well-nourished Eyes: ABIDA, EOMI, Conjunctiva clear ENT: Ears normal, Nose normal, Oropharynx normal Respiratory: Rhonchi, Wheezes Cardiovascular: RRR, Pulses normal, No rub, No murmur GI/: Soft, Nontender, No masses, Bowel sounds normal, No Organomegaly Musculoskeletal: Normal strength, ROM intact, No edema, No calf tenderness Skin: Warm, Dry, Normal color Neurological: Sensation intact, Motor intact, Reflexes intact, Cranial nerves intact, Alert, Oriented Psychiatric: Affect appropriate, Mood appropriate Critical Care Note - Critical Care Note Total Time (mins): 0 Course - Course Orders, Labs, Meds: Orders Category Date Time Status FLU A & B RAPID TEST [MOLECULAR FLU A/B] Stat LAB 02/11/17 08:54 Ordered MOLECULAR GROUP A STREP Stat LAB 02/11/17 08:54 Ordered Ceftriaxone Sodium [Rocephin] MEDS 02/11/17 09:05 Stat 1 gm IM ONCE STA Dexamethasone 4 mg/ml Inj [Decadron 4 mg/ml Sdv] MEDS 02/11/17 09:05 Stat 8 mg IM ONCE STA Hydrocodone/Chlorphen Polis [Tussionex] MEDS 02/11/17 09:06 Stat 5 ml PO ONCE STA Lidocaine HCl/Pf [Lidocaine HCl 1% Sdv] MEDS 02/11/17 09:05 Stat 5 ml SUBCUT ONCE STA Medications Discontinued Medications Generic Name Dose Route Start Last Admin Trade Name Freq PRN Reason Stop Dose Admin Ceftriaxone Sodium 1 gm 02/11/17 09:05 Rocephin IM 02/11/17 09:06 ONCE STA Chlorphenir/Hydrocodone Polistirex 5 ml 02/11/17 09:06 Tussionex PO 02/11/17 09:07 ONCE STA Dexamethasone Sodium Phosphate 8 mg 02/11/17 09:05 Decadron 4 Mg/Ml Sdv IM 02/11/17 09:06 ONCE STA Lidocaine HCl 5 ml 02/11/17 09:05 Lidocaine Hcl 1% Sdv SUBCUT 02/11/17 09:06 ONCE STA Vital Signs: Temp Pulse Resp BP Pulse Ox 02/11/17 08:35 98.4 F 103 H 20 142/91 H 96 Departure - Departure Time of Disposition: 09:11 Disposition: HOME SELF-CARE Discharge Problem: Viral syndrome, Bronchitis Instructions: Viral Syndrome (ED) Condition: Good Pt referred to PMD for follow-up: Yes Allergies/Adverse Reactions: Allergies No Known Allergies Allergy (Verified 02/11/17 08:44) Home Medications: Ambulatory Orders Amitriptyline/Chlordiazepoxide [Chlordiazepo-Amitriptyl 5-12.5] 5 - 12.5 mg PO QID PRN 08/01/16 Hydrocodone/Acetaminophen [[place] 5-325 Tablet] 1 each PO PRN 08/15/16 Disposition Discussed With: Patient, Family
== END 2017-02-11 09:54 | disposition home or self-care (01) ==
LOC: ED 08:35
DX: B34.9 Viral infection, unspecified (principal); J40 Bronchitis, not specified as acute or chronic
CPT/HCPCS: 87502; 87651; 96372; 99283

== ENCOUNTER 2017-03-03 18:06 | Outpatient (CLI) | END 2017-03-03 18:07 | disposition home or self-care (01) | LOC: NONPT 18:06 | PROVIDERS: ATTEND Emergency Medicine | DX: J06.9 Acute upper respiratory infection, unspecified (principal) | CPT/HCPCS: 87651; 87804 ==

== ENCOUNTER 2017-05-19 12:25 | Outpatient (CLI) | END 2017-05-19 12:26 | disposition home or self-care (01) | LOC: FCC-LAB 12:25 | PROVIDERS: ATTEND Nurse Practitioner Family | DX: E75.6 Lipid storage disorder, unspecified (principal); I10 Essential (primary) hypertension | CPT/HCPCS: 36415; 80053; 80061; 85025 ==

== ENCOUNTER 2017-05-22 12:37 | Outpatient (CLI) | END 2017-05-22 12:38 | disposition home or self-care (01) | LOC: FCC-LAB 12:37 | PROVIDERS: ATTEND Nurse Practitioner Family | DX: R74.8 Abnormal levels of other serum enzymes (principal) | CPT/HCPCS: 36415; 80074 ==

== ENCOUNTER 2017-06-02 09:04 | Outpatient (CLI) ==
--- NOTE | 2017-06-02 10:38 | US ---
EXAM: And abdomen limited right upper quadrant HISTORY: Abnormal levels of other serum enzymes COMPARISON: 08/04/2016 TECHNIQUE: Limited ultrasound abdomen right upper quadrant was performed FINDINGS: Visualized portion pancreas appears normal. Portions of the pancreas obscured secondary b owel gas shadowing. Liver mildly enlarged. Liver diffusely increased in echogenicity. Main portal vein patent with normal direction of flow. Patient status post cholecystectomy. No biliary duct dil ation with common bile duct measuring 0.5 cm. Right kidney measures 12.2 cm in length without hydron ephrosis. IMPRESSION: 1. Hepatomegaly. Hepatic steatosis. 2. Status post cholecystectomy. No biliary duct dilation.
== END 2017-06-02 09:05 | disposition home or self-care (01) ==
LOC: RAD 09:04
PROVIDERS: ATTEND Nurse Practitioner Family
DX: R74.8 Abnormal levels of other serum enzymes (principal); K76.0 Fatty (change of) liver, not elsewhere classified

== ENCOUNTER 2017-08-18 09:38 | Outpatient (CLI) | END 2017-08-18 09:39 | disposition home or self-care (01) | LOC: FCC-LAB 09:38 | PROVIDERS: ATTEND Nurse Practitioner Family | DX: R74.8 Abnormal levels of other serum enzymes (principal); I10 Essential (primary) hypertension; E66.9 Obesity, unspecified | CPT/HCPCS: 36415; 80053; 80061; 85025 ==

== ENCOUNTER 2017-12-27 12:59 | Outpatient (CLI) | END 2017-12-27 13:00 | disposition home or self-care (01) | LOC: RAD 12:59 | PROVIDERS: ATTEND Family Medicine | DX: Z12.31 Encounter for screening mammogram for malignant neoplasm of breast (principal) ==

== ENCOUNTER 2018-05-09 09:40 | Emergency (ER) | payer OTHER ==
[2018-05-09 09:45] VITALS: BP 141/92; TEMP 98.9; BMI 41.1
--- NOTE | 2018-05-09 10:03 | ED.PDOC ---
General ED Provider: Dr. UDAY GUEVARA Chief Complaint: Respiratory Complaint Stated Complaint: frontal headache,nonproductive weak cough,uppaer chest feels sore from cough efforts,breathing sounds appears diminished.On beta blockers for blood pressure.Alzo Loratadine and Tylenol. Time Seen by Physician: 09:45 Mode of Arrival: Walk-In Information Source: Patient Primary Care Provider: CHAZ HOOPER Nursing and Triage Documentation Reviewed and Agree: Yes Does patient meet sepsis criteria?: No System Inflammatory Response Syndrome: Not Applicable Sepsis Protocol: For patient's 13 years and over: Temp is 96.8 and below OR 101 and greater Pulse >90 BPM Resp >20/minute Acutely Altered Mental Status Are patient's symptoms suggestive of a new infection, such as: -Pneumonia -Skin, Soft Tissue -Endocarditis -UTI -Bone, Joint Infection -Implantable Device -Acute Abdominal Infection -Wound Infection -Meningitis -Blood Stream Catheter Infection -Unknown Respiratory Complaint Exam - Asthma Complaint/Exam Onset/Duration: several days Symptoms Are: Still present Timing: Intermittent Initial Severity: Mild Current Severity: Mild Character: Reports: Wheezing, Non-productive cough Aggravating: Reports: Weather change Alleviating: Reports: Steroids, Rest Associated Signs and Symptoms: Reports: SOA Related History: Reports: Similar episode Related Surgical History: Reports: None Status Asthmaticus Risk Factors: Reports: None Recent Antibiotics: No Respiratory Distress: None Accessory Muscle Use: No Retractions: Not Present Diminished Breath Sounds: Yes Prolonged Expiratory Phase: Yes Unable to Speak Full Sentences: No Fatigue Present: No Differential Diagnoses: Acute Asthma, Bronchitis, COPD Exacerbation, Pneumonia, Bronchospasm Review of Systems - Review Of Systems Constitutional: Reports: No symptoms Eyes: Reports: No symptoms Ears, Nose, Mouth, Throat: Reports: Nose discharge Respiratory: Reports: Cough, Short of air, Wheezing Cardiac: Reports: No symptoms GI: Reports: No symptoms : Reports: No symptoms Musculoskeletal: Reports: No symptoms Skin: Reports: No symptoms Neurological: Reports: No symptoms Endocrine: Reports: No symptoms Hematologic/Lymphatic: Reports: No symptoms All Other Systems: Reviewed and Negative Past Medical History - Past Medical History Previously Healthy: Yes Endocrine: Reports: Unknown Cardiovascular: Reports: Unknown Respiratory: Reports: Unknown Hematological: Reports: Unknown Gastrointestinal: Reports: Unknown Genitourinary: Reports: Unknown Neuro/Psych: Reports: Unknown Musculoskeletal: Reports: Unknown Cancer: Reports: Unknown Last Menstrual Period: only having every 4 months - Surgical History General Surgical History: Reports: Unknown - Family History Family History: Reports: Unknown - Social History Smoking Status: Never smoker Hx Substance Use: No Alcohol Screening: None Physical Exam - Physical Exam Appearance: Well-appearing Ill-appearing: None Pain Distress: None Eyes: ABIDA ENT: Ears normal, Rhinorrhea Neck: Supple Respiratory: Breath sounds diminished, Wheezes Cardiovascular: RRR GI/: Soft Musculoskeletal: Normal strength Skin: Warm Neurological: Sensation intact Critical Care Note - Critical Care Note Total Time (mins): 0 Course - Course Hematology/Chemistry: 05/09/18 10:32 Orders, Labs, Meds: Lab Review 05/09/18 05/09/18 10:02 10:32 WBC 9.44 RBC 4.79 Hgb 14.0 Hct 41.6 MCV 86.8 MCH 29.2 MCHC 33.7 RDW Coeff of Ted 14.0 Plt Count 230 Immature Gran % (Auto) 0.3 Neut % (Auto) 57.6 Lymph % (Auto) 34.5 [place] % (Auto) 5.6 Eos % (Auto) 1.5 Baso % (Auto) 0.5 Immature Gran # (Auto) 0.0 Neut # (Auto) 5.4 Lymph # (Auto) 3.3 [place] # (Auto) 0.5 Eos # (Auto) 0.1 Baso # (Auto) 0.1 Influ A Molecular Assay Negative by naat Influ B Molecular Assay Negative by naat Orders Category Date Time Status NEBULIZER TREATMENT Stat CARDIO 05/09/18 10:18 Completed CBC W/ AUTO DIFF Stat LAB 05/09/18 10:32 Completed FLU A & B MOLECULAR [FLU A/B MOLECULAR] Stat LAB 05/09/18 10:02 Completed MOLECULAR GROUP A STREP Stat LAB 05/09/18 10:02 Completed Albuterol Sulfate 0.083% Neb [Albuterol 0.083% Neb] MEDS 05/09/18 10:17 Discontinued 1 vial NEB ONCE STA CHEST, 2 VIEWS PA & LAT Stat RADS 05/09/18 10:15 Completed Medications Discontinued Medications Generic Name Dose Route Start Last Admin Trade Name Freq PRN Reason Stop Dose Admin Albuterol Sulfate 1 vial 05/09/18 10:17 05/09/18 10:32 Albuterol 0.083% Neb NEB 05/09/18 10:18 1 vial ONCE STA Administration Vital Signs: Temp Pulse Resp BP Pulse Ox 05/09/18 09:42 98.9 F 68 20 141/92 H 97 Departure - Departure Time of Disposition: 11:40 Disposition: HOME SELF-CARE Discharge Problem: COPD (chronic obstructive pulmonary disease) Instructions: Albuterol (By breathing) Condition: Good Pt referred to PMD for follow-up: Yes IPMP verified?: No Allergies/Adverse Reactions: Allergies No Known Allergies Allergy (Verified 02/11/17 08:44) Home Medications: Ambulatory Orders Hydrocodone/Acetaminophen [[place] 5-325 Tablet] 1 each PO PRN 08/15/16 Disposition Discussed With: Patient, Family
[2018-05-09] MEDS ORDERED: ALBUTEROL 0.083% NEB NEB STA (10:17)
--- NOTE | 2018-05-09 10:53 | DI ---
Exam: Chest two-view HISTORY: Chest tightness. FINDINGS: Two views of the chest demonstrate moderately expanded lungs with no evidence of pneumonia or edema. Calcified granulomata are noted. The heart is normal in size and configuration. The pul monary vasculature is not congested. The skeletal structures are intact. There are mild degenerativ e findings in the spine. IMPRESSION: No acute cardiopulmonary disease.
== END 2018-05-09 12:03 | disposition home or self-care (01) ==
LOC: ED 09:40
DX: J44.9 Chronic obstructive pulmonary disease, unspecified (principal)
CPT/HCPCS: 36415; 85025; 87502; 87651; 94640; 99283

== ENCOUNTER 2018-05-23 20:30 | Emergency (ER) ==
[2018-05-23 20:31] VITALS: BMI 41.1
[2018-05-23 20:41] VITALS: BP 164/93; TEMP 98
[2018-05-23] MEDS ORDERED: TESSALON PERLES PO STA (20:47)
[2018-05-23] MEDS ORDERED: DUONEB NEB STA (20:47)
--- NOTE | 2018-05-23 21:12 | ED.PDOC ---
General ED Provider: Dr. NIURKA ALEJANDRE Chief Complaint: Cough Stated Complaint: Patient is a 52 year old female who comes to the ER with cough and conjestion for the past 5 days. Also complains of chills. Cough is productive of yellow sputum. Time Seen by Physician: 21:09 Mode of Arrival: Walk-In Information Source: Patient, Family Exam Limitations: No limitations Primary Care Provider: CHAZ HOOPER Nursing and Triage Documentation Reviewed and Agree: Yes Does patient meet sepsis criteria?: No System Inflammatory Response Syndrome: Not Applicable Sepsis Protocol: For patient's 13 years and over: Temp is 96.8 and below OR 101 and greater Pulse >90 BPM Resp >20/minute Acutely Altered Mental Status Are patient's symptoms suggestive of a new infection, such as: -Pneumonia -Skin, Soft Tissue -Endocarditis -UTI -Bone, Joint Infection -Implantable Device -Acute Abdominal Infection -Wound Infection -Meningitis -Blood Stream Catheter Infection -Unknown Respiratory Complaint Exam - Respiratory Complaint/Exam Onset/Duration: 5 days Symptoms Are: Still present Timing: Constant Initial Severity: Moderate Current Severity: Moderate Location: Chest Character: Reports: Productive cough (green sputum) Aggravating: Reports: URI, Weather Alleviating: Reports: None Associated Signs and Symptoms: Reports: Dyspnea, Chest pain (with cough only ), URI Related Surgical History: Reports: None Pulmonary Embolism Risk Factors: None Cardiac Risk Factors: Reports: Hypertension Pseudomonas Risk Factors: Reports: None Tuberculosis Risk Factors: Reports: None Status Asthmaticus Risk Factors: Reports: None Home Oxygen Use: No Recent Stress Test: No Recent Echo/LV Function: No Current Antibiotic Use: No Current Asthma Medication Use: No Respiratory Distress: None Inadequate Respiratory Effort: No Dysphagia Present: No Stridor Present: No JVD Present: No Retractions: Not Present Diminished Breath Sounds: No Sinus Tenderness: None Grunting Respirations: No Kussmaul Respirations: No Differential Diagnoses: Chest Wall Pain, Pneumonia, URI Non-Traumatic Chest Pain Syncope: EKG Performed Review of Systems - Review Of Systems Constitutional: Reports: Chills Eyes: Reports: No symptoms Ears, Nose, Mouth, Throat: Reports: No symptoms Respiratory: Reports: Cough, Wheezing Cardiac: Reports: No symptoms GI: Reports: No symptoms : Reports: No symptoms Musculoskeletal: Reports: No symptoms Skin: Reports: No symptoms Neurological: Reports: No symptoms Endocrine: Reports: No symptoms Hematologic/Lymphatic: Reports: No symptoms All Other Systems: Reviewed and Negative Past Medical History - Past Medical History Previously Healthy: Yes Endocrine: Reports: None Cardiovascular: Reports: Hypertension Respiratory: Reports: None Hematological: Reports: None Gastrointestinal: Reports: None Genitourinary: Reports: None Neuro/Psych: Reports: Migraine Musculoskeletal: Reports: None Cancer: Reports: None Last Menstrual Period: 05/12/18 Other Pertinent Past Medical History: obesity - Surgical History General Surgical History: Reports: - Family History Family History: Reports: Unknown - Social History Smoking Status: Never smoker Hx Substance Use: No Alcohol Screening: None - Immunizations Tetanus Shot up to Date: Yes Physical Exam - Physical Exam Appearance: Ill-appearing, Obese Ill-appearing: Mild Pain Distress: Mild Eyes: ABIDA, EOMI, Conjunctiva clear Neck: Supple Respiratory: Airway patent, Breath sounds clear, Breath sounds equal, Respirations nonlabored Cardiovascular: RRR, Pulses normal, No rub, No murmur Skin: Warm Neurological: Alert, Oriented Psychiatric: Anxious Interpretation - Radiology Interpretation Radiology Interpretation By: ED Physician Radiology Results: Negative Exam Interpreted: CXR - EKG Interpretation Time of EKG #1: 21:25 Rate: Normal Rhythm: Sinus Ectopy: None Venus: NL ST Segment: Normal Interpretation: normal EKG Critical Care Note - Critical Care Note Total Time (mins): 0 Course - Course Hematology/Chemistry: 05/23/18 20:55 Orders, Labs, Meds: Lab Review 05/23/18 20:55 WBC 10.44 H RBC 4.26 Hgb 12.7 Hct 37.5 MCV 88.0 MCH 29.8 MCHC 33.9 RDW Coeff of Ted 14.0 Plt Count 262 Immature Gran % (Auto) 0.3 Neut % (Auto) 48.8 Lymph % (Auto) 41.1 [place] % (Auto) 6.0 Eos % (Auto) 3.2 Baso % (Auto) 0.6 Immature Gran # (Auto) 0.0 Neut # (Auto) 5.1 Lymph # (Auto) 4.3 H [place] # (Auto) 0.6 Eos # (Auto) 0.3 Baso # (Auto) 0.1 Orders Category Date Time Status NEBULIZER TREATMENT Stat CARDIO 05/23/18 20:48 Ordered CBC W/ AUTO DIFF Stat LAB 05/23/18 20:55 Completed COMPREHENSIVE METABOLIC PANEL Stat LAB 05/23/18 20:55 Received FLU A/B MOLECULAR Stat LAB 05/23/18 20:59 Received RAPID STREP SCREEN [MOLECULAR GROUP A STREP] Stat LAB 05/23/18 20:59 Received Benzonatate [Tessalon Perles] MEDS 05/23/18 20:47 Discontinued 100 mg PO ONCE STA Ipratropium/Albuterol Neb [Duoneb] MEDS 05/23/18 20:47 Discontinued 1 vial NEB ONCE STA CHEST, 2 VIEWS PA & LAT Stat RADS 05/23/18 20:48 Ordered Medications Discontinued Medications Generic Name Dose Route Start Last Admin Trade Name Freq PRN Reason Stop Dose Admin Albuterol/Ipratropium 1 vial 05/23/18 20:47 Duoneb NEB 05/23/18 20:48 ONCE STA Benzonatate 100 mg 05/23/18 20:47 05/23/18 20:54 Tessalon Perles PO 05/23/18 20:48 100 mg ONCE STA Administration Vital Signs: Temp Pulse Resp BP Pulse Ox 05/23/18 20:31 98 F 70 16 164/93 H 97 Departure - Departure Time of Disposition: 21:28 Disposition: HOME SELF-CARE Discharge Problem: Acute bronchitis Qualifiers: Bronchitis organism: other organism Qualified Code(s): J20.8 - Acute bronchitis due to other specified organisms Instructions: Acute Bronchitis (ED) Condition: Fair Pt referred to PMD for follow-up: Yes IPMP verified?: No Additional Instructions: take medications as prescribed Follow up with PCP in 3 days Prescriptions: Albuterol Sulfate [Proair Hfa] 2 puff IH Q6H PRN #1 puff PRN Reason: shortness of breath Azithromycin [Zithromax] 250 mg PO DIRECTED #6 tablet Benzonatate [Tessalon Perles] 100 mg PO TID PRN #25 capsule PRN Reason: Cold Symptons Prednisone 20 mg PO DAILYWM #5 tablet Allergies/Adverse Reactions: Allergies No Known Allergies Allergy (Verified 05/23/18 20:38) Home Medications: Ambulatory Orders Hydrocodone/Acetaminophen [[place] 5-325 Tablet] 1 each PO PRN 08/15/16 Albuterol Sulfate [Proair Hfa] 2 puff IH Q6H PRN #1 puff 05/23/18 Albuterol Sulfate [Proair Respiclick] 90 mcg IH PRN PRN 05/23/18 Azithromycin [Zithromax] 250 mg PO DIRECTED #6 tablet 05/23/18 Benzonatate [Tessalon Perles] 100 mg PO TID PRN #25 capsule 05/23/18 Prednisone 20 mg PO DAILYWM #5 tablet 05/23/18 Disposition Discussed With: Patient, Family
--- NOTE | 2018-05-24 08:09 | DI ---
EXAM: CHEST FRONTAL AND LATERAL VIEWS HISTORY: Cough. COMPARISON: 05/09/2018 FINDINGS: Heart size and mediastinal contour remain within normal limits. No acute infiltrates. Normal vascularity with no pleural fluid or pneumothorax. The bony thorax has no acute finding. IMPRESSION: No acute process.
== END 2018-05-23 22:50 | disposition home or self-care (01) ==
LOC: ED 20:30
DX: J20.9 Acute bronchitis, unspecified (principal); I10 Essential (primary) hypertension; E66.9 Obesity, unspecified
CPT/HCPCS: 36415; 80053; 84484; 85025; 87502; 87651; 93005; 93010; 94640; 99283

== ENCOUNTER 2018-05-29 05:15 | Emergency (ER) ==
[2018-05-29 05:27] VITALS: BMI 43.2
--- NOTE | 2018-05-29 06:23 | ED.PDOC ---
General Stated Complaint: i think i am worse with this cough--was seen a few days ago and given antbx, steroids--worsening symptoms Time Seen by Physician: 05:20 Mode of Arrival: Walk-In Information Source: Patient Exam Limitations: No limitations Nursing and Triage Documentation Reviewed and Agree: Yes Does patient meet sepsis criteria?: No System Inflammatory Response Syndrome: Not Applicable <CHRISTIANNEYG - Last Filed: 05/29/18 06:21> <SEVERO MOELLER - Last Filed: 05/29/18 08:52> ED Provider: Dr. SEVERO MOELLER Chief Complaint: Cough Primary Care Provider: CHAZ HOOPER Sepsis Protocol: For patient's 13 years and over: Temp is 96.8 and below OR 101 and greater Pulse >90 BPM Resp >20/minute Acutely Altered Mental Status Are patient's symptoms suggestive of a new infection, such as: -Pneumonia -Skin, Soft Tissue -Endocarditis -UTI -Bone, Joint Infection -Implantable Device -Acute Abdominal Infection -Wound Infection -Meningitis -Blood Stream Catheter Infection -Unknown Respiratory Complaint Exam - Respiratory Complaint/Exam Onset/Duration: 2 weeks Symptoms Are: Still present Timing: Intermittent Initial Severity: Mild Current Severity: Moderate Location: Chest Character: Reports: Non-productive cough Aggravating: Reports: URI Alleviating: Reports: None Associated Signs and Symptoms: Reports: Dyspnea, Pleuritic chest pain, URI History of Healthcare-Acquired Pneumonia: No Home Oxygen Use: No Recent Stress Test: No Recent Echo/LV Function: No Current Antibiotic Use: No Current Asthma Medication Use: No Respiratory Distress: None Inadequate Respiratory Effort: No Dysphagia Present: No Stridor Present: No JVD Present: No Accessory Muscle Use: No Retractions: Not Present Diminished Breath Sounds: No Sinus Tenderness: None Grunting Respirations: No Kussmaul Respirations: No Differential Diagnoses: Pneumonia, Bronchitis Non-Traumatic Chest Pain Syncope: EKG Performed <DWAINADAYG - Last Filed: 05/29/18 06:21> Review of Systems - Review Of Systems Constitutional: Reports: No symptoms Eyes: Reports: No symptoms Ears, Nose, Mouth, Throat: Reports: No symptoms Respiratory: Reports: Cough, Short of air Cardiac: Reports: Chest pain GI: Reports: No symptoms : Reports: No symptoms Musculoskeletal: Reports: No symptoms Skin: Reports: No symptoms Neurological: Reports: No symptoms Endocrine: Reports: No symptoms Hematologic/Lymphatic: Reports: No symptoms All Other Systems: Reviewed and Negative <CHRISTIANNEYG Last Filed: 05/29/18 06:21> Past Medical History - Past Medical History Previously Healthy: Yes Endocrine: Reports: None Cardiovascular: Reports: Hypertension Respiratory: Reports: None Hematological: Reports: None Gastrointestinal: Reports: None Genitourinary: Reports: None Neuro/Psych: Reports: Migraine Musculoskeletal: Reports: None Cancer: Reports: None Last Menstrual Period: MAY 12, 2018 Other Pertinent Past Medical History: obesity - Surgical History General Surgical History: Reports: - Family History Family History: Reports: Unknown - Social History Smoking Status: Never smoker Hx Substance Use: No Alcohol Screening: None - Immunizations Tetanus Shot up to Date: (UNKNOWN) <DWAINADAYG Last Filed: 05/29/18 06:21> Physical Exam - Physical Exam Appearance: Well-appearing, No pain distress, Well-nourished Eyes: ABIDA, EOMI, Conjunctiva clear ENT: Ears normal, Nose normal, Oropharynx normal Neck: Supple Respiratory: Airway patent, Breath sounds clear, Breath sounds equal, Respirations nonlabored Cardiovascular: RRR, Pulses normal, No rub, No murmur GI/: Soft, Nontender, No masses, Bowel sounds normal, No Organomegaly Musculoskeletal: Normal strength, ROM intact, No edema, No calf tenderness Skin: Warm, Dry, Normal color Neurological: Sensation intact, Motor intact, Reflexes intact, Cranial nerves intact, Alert, Oriented Psychiatric: Affect appropriate, Mood appropriate <CHRISTIANNEYG Last Filed: 05/29/18 06:21> Interpretation - Radiology Interpretation Radiology Interpretation By: Radiologist Radiology Results: Negative Exam Interpreted: CT Scan (PE protocol; negative findings; no pleural fluid or pneumothorax; no PE; normal thoracic aorta) <SEVERO MOELLER - Last Filed: 05/29/18 08:52> Re-Evaluation - Re-Evaluation Time of Re-Evaluation: 08:25 Status: Unchanged Vital Signs Stable: Yes Pain Level: lower ribs are hurting (with coughing) Appearance: NAD Lungs: Clear Skin: Warm and Dry Neuro: Alert and Oriented X3 CV: RRR <SEVERO MOELLER Last Filed: 05/29/18 08:52> Physician Notification - Case Discussed Physician Notified: dr moeller Time of Notification: 07:00 <YG FAUST - Last Filed: 05/29/18 06:21> Critical Care Note <YG FAUST - Last Filed: 05/29/18 06:21> - Critical Care Note Total Time (mins): 35 <SEVERO MOELLER - Last Filed: 05/29/18 08:52> - Critical Care Note Comments: Initial eval labs and CT results reviewed; discussions with patient and family re SX and teatment. Re check Vital Signs. (SEVERO MOELLER) Course - Course Hematology/Chemistry: 05/29/18 06:05 <YG FAUST - Last Filed: 05/29/18 06:21> - Course Hematology/Chemistry: 05/29/18 06:05 05/29/18 06:05 <SEVERO MOELLER - Last Filed: 05/29/18 08:52> - Course Orders, Labs, Meds: Lab Review 05/29/18 05/29/18 05/29/18 06:05 06:05 06:05 WBC 15.88 H RBC 4.26 Hgb 12.7 Hct 36.7 L MCV 86.2 MCH 29.8 MCHC 34.6 RDW Coeff of Ted 13.6 Plt Count 265 Immature Gran % (Auto) 0.3 Neut % (Auto) 47.4 Lymph % (Auto) 44.8 [place] % (Auto) 5.7 Eos % (Auto) 1.2 Baso % (Auto) 0.6 Immature Gran # (Auto) 0.1 Neut # (Auto) 7.5 H Lymph # (Auto) 7.1 H [place] # (Auto) 0.9 Eos # (Auto) 0.2 Baso # (Auto) 0.1 Sodium 139.8 Potassium 3.46 L Chloride 106.7 Carbon Dioxide 23.0 Anion Gap 13.56 BUN 16.7 Creatinine 0.53 L Estimated GFR (MDRD) 122.00 BUN/Creatinine Ratio 31.50 Glucose 103.1 Calcium 9.30 Total Bilirubin 0.25 AST 29.1 ALT 27.6 Alkaline Phosphatase 103.8 NT-Pro-B Natriuret Pep 62.900 Total Protein 7.73 Albumin 4.56 Globulin 3.17 Albumin/Globulin Ratio 1.43 Serum , Qual Negative Influ A Molecular Assay Influ B Molecular Assay 05/29/18 06:05 WBC RBC Hgb Hct MCV MCH MCHC RDW Coeff of Ted Plt Count Immature Gran % (Auto) Neut % (Auto) Lymph % (Auto) [place] % (Auto) Eos % (Auto) Baso % (Auto) Immature Gran # (Auto) Neut # (Auto) Lymph # (Auto) [place] # (Auto) Eos # (Auto) Baso # (Auto) Sodium Potassium Chloride Carbon Dioxide Anion Gap BUN Creatinine Estimated GFR (MDRD) BUN/Creatinine Ratio Glucose Calcium Total Bilirubin AST ALT Alkaline Phosphatase NT-Pro-B Natriuret Pep Total Protein Albumin Globulin Albumin/Globulin Ratio Serum , Qual Influ A Molecular Assay Negative by naat Influ B Molecular Assay Negative by naat Orders Category Date Time Status EKG-(ED ONLY) Stat CARDIO 05/29/18 05:52 Completed NPO REMINDER: IMAGING ONCE CARE 05/29/18 06:36 Completed ED IV/MEDIPORT/POWERPORT .ONCE EMERGENCY 05/29/18 05:52 Active BLOOD CULTURE (ED ONLY) Stat LAB 05/29/18 06:05 Received CBC W/ AUTO DIFF Stat LAB 05/29/18 06:05 Completed COMPREHENSIVE METABOLIC PANEL Stat LAB 05/29/18 06:05 Completed FLU A/B MOLECULAR Stat LAB 05/29/18 06:05 Completed NT-PROBNP Stat LAB 05/29/18 06:05 Completed SERUM Stat LAB 05/29/18 06:05 Completed 0.9 % Sodium Chloride [Saline Flush] MEDS 05/29/18 05:52 Active 1 syr IVF PRN PRN CT CHEST PE PROTOCOL Stat RADS 05/29/18 06:36 Completed Medications Generic Name Dose Route Start Last Admin Trade Name Freq PRN Reason Stop Dose Admin Sodium Chloride 1 syr 05/29/18 05:52 Saline Flush IVF PRN PRN To flush IV Vital Signs: Temp Pulse Resp BP Pulse Ox 05/29/18 08:35 97.3 F L 60 16 117/79 99 05/29/18 05:15 97.9 F 71 20 143/88 H 98 Departure <YG FAUST - Last Filed: 05/29/18 06:21> - Departure Time of Disposition: 08:42 Pt referred to PMD for follow-up: Yes (Follow up; call office) IPMP verified?: No Disposition Discussed With: Patient, Family (Educated patient re negative labs and CT; no pulmonay embolism or pneumonia. Lower posterior rib discomfort expected with coughing.) <SEVERO MOELLER - Last Filed: 05/29/18 08:52> - Departure Disposition: HOME SELF-CARE Discharge Problem: Bronchitis Instructions: Acute Bronchitis (ED) Condition: Stable Additional Instructions: Follow up with primary care; call office tomorrow and let them know of your ER visit and how you are doing. Let them know you had blood work dome and a CT scan of the lungs and nothing was found. Prescriptions: Codeine/Promethazine Syrup [Phenergan with Codeine 6.25/10 mg/5 ml] 5 ml PO Q6H #100 disp.syrin Allergies/Adverse Reactions: Allergies No Known Allergies Allergy (Verified 05/29/18 05:26) Home Medications: Ambulatory Orders Hydrocodone/Acetaminophen [[place] 5-325 Tablet] 1 each PO PRN 08/15/16 Benzonatate [Tessalon Perles] 100 mg PO TID PRN #25 capsule 05/23/18 Albuterol Sulfate [Proair Hfa] 2 puff IH TID PRN 05/29/18 Codeine/Promethazine Syrup [Phenergan with Codeine 6.25/10 mg/5 ml] 5 ml PO Q6H #100 disp.syrin 05/29/18
--- NOTE | 2018-05-29 07:26 | CT ---
EXAM: CTA CHEST (PE PROTOCOL) HISTORY: Chest pain TECHNIQUE: CTA chest with intravenous contrast. Multiplanar images were provided with 3-D reconstru ctions. 100 mL Omnipaque. COMPARISON: None FINDINGS: No pulmonary arterial filling defects. Thoracic aorta within normal limits. Normal heart size. Lungs are clear. Normal vascularity. No pleural fluid or pneumothorax. No acute bony finding. IMPRESSION: 1. No pulmonary arterial thromboembolism. 2. Lungs are clear.
[2018-05-29 08:35] VITALS: BP 117/79; TEMP 97.3
== END 2018-05-29 09:01 | disposition home or self-care (01) ==
LOC: ED 05:15
DX: J40 Bronchitis, not specified as acute or chronic (principal); I10 Essential (primary) hypertension; R06.02 Shortness of breath; R07.1 Chest pain on breathing
CPT/HCPCS: 36415; 80053; 83880; 84703; 85025; 87040; 87502; 93005; 93010; 99284

== ENCOUNTER 2018-06-04 09:37 | Outpatient (CLI) | END 2018-06-04 09:38 | disposition home or self-care (01) | LOC: RHC-LAB 09:37 → FCC-LAB 09:38 | PROVIDERS: ATTEND Family Medicine | DX: M79.641 Pain in right hand (principal); M79.642 Pain in left hand; L83 Acanthosis nigricans | CPT/HCPCS: 36415; 82306; 82607; 83037; 85651 ==

== ENCOUNTER 2018-08-02 07:53 | Outpatient (CLI) | END 2018-08-02 07:54 | disposition home or self-care (01) | LOC: RHC-LAB 07:53 → FCC-LAB 07:54 | PROVIDERS: ATTEND Family Medicine | DX: E55.9 Vitamin D deficiency, unspecified (principal) | CPT/HCPCS: 36415; 82306 ==

== ENCOUNTER 2018-10-12 16:00 | Outpatient (CLI) | END 2018-10-12 16:01 | disposition home or self-care (01) | LOC: RHC-LAB 16:00 → FCC-LAB 16:01 | PROVIDERS: ATTEND Family Medicine | DX: E55.9 Vitamin D deficiency, unspecified (principal); E87.6 Hypokalemia | CPT/HCPCS: 36415; 80053; 82306 ==

== ENCOUNTER 2018-10-18 08:14 | Outpatient (CLI) | END 2018-10-18 08:15 | disposition home or self-care (01) | LOC: RHC-LAB 08:14 → FCC-LAB 08:15 | PROVIDERS: ATTEND Family Medicine | DX: R73.9 Hyperglycemia, unspecified (principal) | CPT/HCPCS: 36415; 83036 ==